=== PATIENT | male | born 1940 | race Hispanic/Latino ===

== ENCOUNTER 2018-03-02 14:14 | Inpatient (IN) | payer MEDICARE ==
[~2018-03-02] VITALS: Ht 152.4 cm; Wt 78.5 kg
--- OUTSIDE RECORDS SUMMARY | 2018-03-02 14:17 | XMS REPORT ---
Author Author [facility] Address Unknown Phone Unavailable Care Team Providers Care Ethylbenzene Converter Helper Name Role Phone LEONARDA URIARTE Unavailable Unavailable Payers Payer Name Policy Type Policy Number Effective Date Expiration Date Problems This patient has no known problems. Allergies, Adverse Reactions, Alerts Allergy Name Allergy Type Status Severity Reaction(s) Onset Date Inactive Date Treating Clinician Comments No Known Allergies DA Active U 2018-01-07 00:00:00 NO KNOWN CONTRAST MEDIA ALLERG DA Active U 2004-05-17 00:00:00 NO KNOWN OTHER ALLERGIES DA Active U 2004-05-17 00:00:00 No Known Drug Allergies DA Active U 2004-05-17 00:00:00 No Known Food Allergies DA Active U 2004-05-17 00:00:00 No Known Drug Intolerances DA Active U 2003-05-26 00:00:00 Medications This patient has no known medications. Results Test Description Test Time Test Comments Text Results Atomic Results Result Comments BASIC METABOLIC PANEL 2017-09-06 03:57:00 SODIUM (BEAKER) (test smob=117) 139 meq/L 136-145 POTASSIUM (BEAKER) (test viaz=653) 4.5 meq/L 3.5-5.1 CHLORIDE (BEAKER) (test amkt=340) 108 meq/L 98-107 CO2 (BEAKER) (test ghys=937) 19 meq/L 22-29 BLOOD UREA NITROGEN (BEAKER) (test sfxs=617) 23 mg/dL 7-21 CREATININE (BEAKER) (test kkir=024) 1.10 mg/dL 0.57-1.25 GLUCOSE RANDOM (BEAKER) (test eanx=740) 176 mg/dL 70-105 CALCIUM (BEAKER) (test bhpa=085) 9.0 mg/dL 8.4-10.2 EGFR (BEAKER) (test uslk=9541) 65 mL/min/1.73 sq m ESTIMATED GFR IS NOT ACCURATE CREATININE CLEARANCE IN PREDICTING GLOMERULAR FILTRATION RATE. ESTIMATED GFR IS NOT APPLICABLE FOR DIALYSIS PATIENTS. CBC (HEMOGRAM ONLY)2017-09-06 03:41:00* Test Item Value Reference Range Comments WHITE BLOOD CELL COUNT (BEAKER) (test myqi=849) 16.8 K/ L 3.5-10.5 RED BLOOD CELL COUNT (BEAKER) (test jhgf=589) 3.92 M/ L 4.63-6.08 HEMOGLOBIN (BEAKER) (test xczr=221) 12.4 GM/DL 13.7-17.5 HEMATOCRIT (BEAKER) (test ifzh=209) 37.7 % 40.1-51.0 MEAN CORPUSCULAR VOLUME (BEAKER) (test bvlh=627) 96.2 fL 79.0-92.2 MEAN CORPUSCULAR HEMOGLOBIN (BEAKER) (test kbre=766) 31.6 pg 25.7-32.2 MEAN CORPUSCULAR HEMOGLOBIN CONC (BEAKER) (test ugkp=181) 32.9 GM/DL 32.3-36.5 RED CELL DISTRIBUTION WIDTH (BEAKER) (test qgyb=450) 14.6 % 11.6-14.4 PLATELET COUNT (BEAKER) (test nwlx=070) 281 K/CU MM 150-450 MEAN PLATELET VOLUME (BEAKER) (test qlsr=735) 11.2 fL 9.4-12.4 NUCLEATED RED BLOOD CELLS (BEAKER) (test wkwl=865) 0 /100 WBC 0-0 [id number] 17:52:00* Test Item Value Reference Range Comments ACTIVATED CLOTTING TIME (BEAKER) (test uddv=754) 164 sec TESTED AT [place] [id number] [facility] [address] [id number] 15:26:00* Test Item Value Reference Range Comments ACTIVATED CLOTTING TIME (BEAKER) (test wyed=746) 235 sec TESTED AT [address] [address] [id number] 15:26:00* Test Item Value Reference Range Comments ACTIVATED CLOTTING TIME (BEAKER) (test hmir=516) 213 sec TESTED AT [address] [address] [id number] 15:25:00* Test Item Value Reference Range Comments ACTIVATED CLOTTING TIME (BEAKER) (test bini=351) 279 sec TESTED AT [address] [address] POCT-GLUCOSE [id number] 08:20:00* Test Item Value Reference Range Comments POC-GLUCOSE METER (AKER) (test yrhf=8765) 118 mg/dL 70-110 TESTED AT [address] [address]
--- OUTSIDE RECORDS SUMMARY | 2018-03-02 14:17 | XMS REPORT | Clinical Summary ---
Author Author [facility]YLEIGH [facility] Address Unknown Phone Unavailable Care Team Providers Care Corn Cooker Name Role Phone PCP Unavailable Allergies No Known Allergies Medications End Date Status Medication Sig Dispensed Refills Start Date Active atorvastatin (LIPITOR) 20 Take 20 mg by 0 MG tablet mouth daily. Active carvedilol (COREG) 25 MG Take 25 mg by 0 tablet mouth 2 (two) times daily with breakfast and dinner. Active amiodarone (PACERONE) 200 Take 100 mg 0 MG tablet by mouth daily . Active ramipril (ALTACE) 2.5 MG Take 10 mg by 0 capsule mouth daily . Active clopidogrel (PLAVIX) 75 Take 75 mg by 0 mg tablet mouth daily. Active gabapentin (NEURONTIN) Take 300 mg 0 300 MG capsule by mouth nightly. Active metformin HCl (METFORMIN Take 500 mg 0 ORAL) by mouth every morning. Active furosemide (LASIX) 20 MG Take 20 mg by 0 tablet mouth every other day. Active amLODIPine (NORVASC) 2.5 Take 2.5 mg 0 MG tablet by mouth daily. Active tamsulosin (FLOMAX) 0.4 Take 0.4 mg 0 mg Cp24 24 hr capsule by mouth nightly. Active ergocalciferol (VITAMIN Take 50,000 0 D2) 50,000 unit capsule Units by mouth once a week. Active alendronate (FOSAMAX) 70 Take 70 mg by 0 MG tablet mouth every 7 days Take in the morning with a full glass of water, on an empty stomach, and do not take anything else by mouth or lie down for the next 30 min. . Active BABY ASPIRIN ORAL Take by mouth 0 daily. 09/05/2017 Discontinued cilostazol (PLETAL) 100 Take 100 mg 0 MG tablet by mouth 2 (two) times daily. 09/05/2017 Discontinued spironolactone Take 25 mg by 0 (ALDACTONE) 25 MG tablet mouth daily. 09/05/2017 Discontinued warfarin (COUMADIN) 2 MG Take 2 mg by 0 tablet mouth daily. Active Problems Problem Noted Date Claudication 09/05/2017 Abnormal stress test 09/05/2017 PAD (peripheral artery disease) 09/05/2017 Pneumonia 10/02/2012 Hypertension CHF (congestive heart failure) Mixed hyperlipidemia CAD (coronary artery disease) PVD (peripheral vascular disease) Diabetes mellitus ICD (implantable cardiac defibrillator) in place Overview: Updated by SNOMED/IMO Encounters Care Team Description Date Type Specialty Sami Gill MD L CATH & CORONARY ANGIOS 09/05/2017 Surgery Sami Gill MD Claudication (HCC) (Primary Dx); Abnormal stress test; Coronary artery disease due to lipid rich plaque 09/05/2017 Hospital Cardiology - Encounter 09/06/2017 after 03/01/2017 Social History Date Tobacco Use Types Packs/Day Years Used Quit: 07/22/2017 Former Smoker 0.25 Smokeless Tobacco: Never Used Tobacco Cessation: Ready to Quit: No; Counseling Given: Yes Alcohol Use Drinks/Week oz/Week Comments No Sex Assigned at Date Recorded Not on file Industry Job Start Date Occupation Not on file Not on file Not on file Travel End Travel History Travel Start No recent travel history available. Last Filed Vital Signs Time Taken Vital Sign Reading 09/06/2017 7:20 AM CDT Blood Pressure 141/63 09/06/2017 7:20 AM CDT Pulse 60 09/06/2017 7:20 AM CDT Temperature 36.7 C (98 F) 09/06/2017 7:20 AM CDT Respiratory Rate 20 09/06/2017 7:20 AM CDT Oxygen Saturation 97% - Inhaled Oxygen - Concentration 09/06/2017 7:20 AM CDT Weight 77.6 kg (171 lb) 09/05/2017 7:00 AM CDT Height 172.7 cm (5' 8") 09/06/2017 7:20 AM CDT Body Mass Index 26 Plan of Treatment Not on file Implants Device Identifier Shelf Expiration Date Model / Serial / Lot Implanted Type Area Manufactur er [id number] 05/19/2018 [id number] / / [id number] Synergy Stents-Cor N/A: Coronary [place] Implanted: Qty: 1 on 09/05/2017 by onary Sami Martinez MD [id number] 04/28/2018 [id number] / / [id number] Promus Premier Stents-Cor N/A: Coronary [place] Implanted: Qty: 1 on 09/05/2017 by Sami Patel MD Procedures Comments Procedure Name Priority Date/Time Associated Diagnosis VASCULAR DIAGRAM -SCAN 12/09/2017 12:00 PM CDT VASCULAR DIAGRAM -SCAN 12/09/2017 12:00 PM CDT CARDIAC CATH REPORT - 09/10/2017 SCAN 10:12 AM CDT RHYTHM STRIP - SCAN 09/09/2017 12:01 PM CDT CBC (HEMOGRAM ONLY) Routine 09/06/2017 3:10 AM CDT BASIC METABOLIC PANEL (7) Routine 09/06/2017 3:10 AM CDT POCT-ACT Routine 09/05/2017 5:46 PM CDT POCT-ACT Routine 09/05/2017 3:08 PM CDT POCT-ACT Routine 09/05/2017 2:39 PM CDT POCT-ACT Routine 09/05/2017 2:02 PM CDT ABD AO & LOWER EXT 09/05/2017 Peripheral vascular ANGIOS/ POSS PPI 1:22 PM CDT disease (HCC) CAD in [place] artery Case Notes 4CASE POP6 Left heart cath possiblelo wer extremity angio with possible ppi L CATH & CORONARY ANGIOS 09/05/2017 Peripheral vascular 1:22 PM CDT disease (HCC) CAD in [place] artery Case Notes 4CASE POP6 Left heart cath possiblelo wer extremity angio with possible ppi POCT-GLUCOSE METER Routine 09/05/2017 8:18 AM CDT after 03/01/2017 Results * VASCULAR DIAGRAM -SCAN (12/09/2017 12:00 PM CDT) Only the most recent of 2 results within the time period is included. Narrative Performed At * CARDIAC CATH REPORT - SCAN (09/10/2017 10:12 AM CDT) Narrative Performed At * RHYTHM STRIP - SCAN (09/09/2017 12:01 PM CDT) Narrative Performed At * CBC (Hemogram only) (09/06/2017 3:10 AM CDT) WBC 16.8 (H) 3.5 - 10.5 K/L [facility] RBC 3.92 (L) 4.63 - 6.08 M/L [facility] Hemoglobin 12.4 (L) 13.7 - 17.5 GM/DL [facility] Hematocrit 37.7 (L) 40.1 - 51.0 % [facility] MCV 96.2 (H) 79.0 - 92.2 fL [facility] MCH 31.6 25.7 - 32.2 pg [facility] MCHC 32.9 32.3 - 36.5 GM/DL [facility] RDW 14.6 (H) 11.6 - 14.4 % [facility] Platelets 281 150 - 450 K/CU MM [facility] MPV 11.2 9.4 - 12.4 fL [facility] nRBC 0 0 - 0 /100 WBC [facility] Specimen Blood Performing Organization Address City/State/Zipcode Phone Number [facility] [address] [place] [address] MEDICAL CENTER * Basic metabolic panel (09/06/2017 3:10 AM CDT) Sodium 139 136 - 145 meq/L [facility] Potassium 4.5 3.5 - 5.1 meq/L [facility] Chloride 108 (H) 98 - 107 meq/L [facility] CO2 19 (L) 22 - 29 meq/L [facility] BUN 23 (H) 7 - 21 mg/dL [facility] Creatinine 1.10 0.57 - 1.25 mg/dL [facility] Glucose 176 (H) 70 - 105 mg/dL [facility] Calcium 9.0 8.4 - 10.2 mg/dL [facility] EGFR 65Comment: ESTIMATED GFR IS mL/min/1.[address] [facility] NOT ACCURATE CREATININE [facility] CLEARANCE IN PREDICTING GLOMERULAR FILTRATION RATE. ESTIMATED GFR IS NOT APPLICABLE FOR DIALYSIS PATIENTS. Specimen Blood Performing Organization Address City/[facility] [place] [address] [phone] [place] [address] * POC ACTIVATED CLOTTING TIME (09/05/2017 5:46 PM CDT) Only the most recent of 4 results within the time period is included. Activated Clotting Time 164Comment: TESTED AT [facility] sec [address] Specimen Blood Performing Organization Address City/[facility] Cent[facility] Phone Number [address] [address] [phone] [place] [address] * POC-Glucose meter (09/05/2017 8:18 AM CDT) POC-Glucose Meter 118 (H)Comment: TESTED AT 70 - 110 mg/dL [address] [address] Specimen Blood Performing Organization Address City/[facility] Cent[facility]osd Phone Number [address] [address] [phone] [address] after 03/01/2017 Insurance Payer Benefit Subscriber ID Type Phone Address Plan / Group [facility] MEDICARE ADV Advance Directives For more information, please contact: [address] [address] Date Inactivated Comments Code Status Date Activated 09/06/2017 12:37 PM Full Code 09/05/2017 7:55 AM This code status was determined by: Patient 10/05/2012 4:53 PM All possible means of support, including: cardiac massage, mechanical ventilation, and defibrillation will be used to support life. Code ONE 10/03/2012 1:11 AM
--- OUTSIDE RECORDS SUMMARY | 2018-03-02 15:12 | XMS REPORT | Clinical Summary ---
Author Author KYLEIGH [facility] Address Unknown Phone Unavailable Care Team Providers Care Wire Products Inspector Name Role Phone PCP Unavailable Allergies No [...] / Lot Implanted Type Area Manufactur er [id number] 05/19/2018 [id number] / / [id number] Synergy Stents-Cor N/A: Coronary [place] Implanted: Qty: 1 on 09/05/2017 by onary Sami Martinez MD [id number] 04/28/2018 [id number] / / [id number] Promus Premier Stents-Cor N/A: Coronary [place] Implanted: [...] 1:22 PM CDT disease (HCC) CAD in [place] artery Case Notes 4CASE POP6 Left heart cath possiblelo wer extremity angio with possible ppi L CATH & CORONARY ANGIOS 09/05/2017 Peripheral vascular 1:22 PM CDT disease (HCC) CAD in [place] artery Case Notes 4CASE POP6 Left heart [...] WBC 16.8 (H) 3.5 - 10.5 K/L [facility] RBC 3.92 (L) 4.63 - 6.08 M/L [facility] Hemoglobin 12.4 (L) 13.7 - 17.5 GM/DL [facility] Hematocrit 37.7 (L) 40.1 - 51.0 % [facility] MCV 96.2 (H) 79.0 - 92.2 fL [facility] MCH 31.6 25.7 - 32.2 pg [facility] MCHC 32.9 32.3 - 36.5 GM/DL [facility] RDW 14.6 (H) 11.6 - 14.4 % [facility] Platelets 281 150 - 450 K/CU MM [facility] MPV 11.2 9.4 - 12.4 fL [facility] nRBC 0 0 - 0 /100 WBC [facility] Specimen Blood Performing Organization Address City/State/Zipcode Phone Number [facility] [address] [place] [address] MEDICAL CENTER * Basic metabolic panel (09/06/2017 3:10 AM CDT) Sodium 139 136 - 145 meq/L [facility] Potassium 4.5 3.5 - 5.1 meq/L [facility] Chloride 108 (H) 98 - 107 meq/L [facility] CO2 19 (L) 22 - 29 meq/L [facility] BUN 23 (H) 7 - 21 mg/dL [facility] Creatinine 1.10 0.57 - 1.25 mg/dL [facility] Glucose 176 (H) 70 - 105 mg/dL [facility] Calcium 9.0 8.4 - 10.2 mg/dL [facility] EGFR 65Comment: ESTIMATED GFR IS mL/min/1.[address] [facility] NOT ACCURATE CREATININE [facility] CLEARANCE IN PREDICTING GLOMERULAR FILTRATION RATE. ESTIMATED GFR IS NOT APPLICABLE FOR DIALYSIS PATIENTS. Specimen Blood Performing Organization Address City/[facility] [place] [address] [phone] [place] [address] * POC ACTIVATED CLOTTING TIME (09/05/2017 5:46 PM CDT) Only the most recent of 4 results within the time period is included. Activated Clotting Time 164Comment: TESTED AT [facility] sec [address] Specimen Blood Performing Organization Address City/[facility] Unit[facility] Phone Number [address] [address] [phone] [place] [address] * POC-Glucose meter (09/05/2017 8:18 AM CDT) POC-Glucose Meter 118 (H)Comment: TESTED AT 70 - 110 mg/dL [address] [address] Specimen Blood Performing Organization Address City/[facility] Unitcoal Phone Number [address] [address] [phone] [address] after 03/01/2017 Insurance Payer Benefit Subscriber ID Type Phone Address Plan / Group [facility] xxxxxxxxxxx MEDICARE ADV Advance Directives For more information, please contact: [address] [address] Date Inactivated Comments Code Status Date Activated 09/06/2017 12:37 PM Full Code 09/05/2017 7:55 AM This code status was determined by: Patient 10/05/2012 4:53 PM All possible means of support, including: cardiac massage, mechanical ventilation, and defibrillation will be used to support life. Code ONE 10/03/2012 1:11 AM
[2018-03-02] MEDS ORDERED: NITROGLYCERIN 2% OINT 1 GM PKT TOP ONE (15:15)
[2018-03-02] MEDS ORDERED: FUROSEMIDE INJ 10 MG/ML 4 ML VIAL IV NR (15:15)
--- NOTE | 2018-03-02 15:31 | Diagnostic Imaging Report ---
EXAMINATION: PA and lateral views of the chest. COMPARISON: None CLINICAL HISTORY: shortness of breath DISCUSSION: Lines/tubes: Sternotomy wires. 3-lead cardiac device/ICD. Lungs: Pulmonary edema. Pleura: Small effusions. Heart and mediastinum: Heart is enlarged. Bones and soft tissues: No acute bony abnormalities. IMPRESSION: Cardiomegaly with pulmonary edema Signed by: Dr. Teto Padilla M.D. on 03/02/2018 3:28 PM
[2018-03-02 16:30] VITALS: BP 136/88
[2018-03-02 17:30] VITALS: BP 136/88
[2018-03-02 19:50] LABS: CREATINE KINASE MB 4.6 ng/mL (0-5.0)
[2018-03-02 20:00] VITALS: BP 136/65
[2018-03-03] VITALS (8 sets, daily range): BP systolic 122–174; BP diastolic 55–78
[2018-03-03 05:01] LABS: BASOPHILS # (AUTO) 0.1 (0.0-0.1); BASOPHILS % 0.9 % (0.0-1.0); EOSINOPHILS # (AUTO) 0.1 (0.0-0.4); EOSINOPHILS % 0.5 % (0.0-6.0); HEMOGLOBIN 9.2 g/dL (14.0-18.0); LYMPHOCYTES # (AUTO) 1.4 (1.0-3.2); MEAN CORPUSCULAR HGB CONC 29.7 g/dL (31-35); MONOCYTES # (AUTO) 1.4 (0.2-0.8); MONOCYTES % 10.5 % (4.4-11.3); NEUTROPHILS # (AUTO) 9.9 (2.1-6.9); NEUTROPHILS % 76.6 % (38.7-80.0); PLATELET COUNT 411 x10e3/uL (140-360); RED BLOOD COUNT 4.19 x10e6/uL (4.3-5.7); RED CELL DISTRIBUTION WIDTH 17.6 % (11.7-14.4)
[2018-03-03 05:19] LABS: ALBUMIN 3.7 g/dL (3.5-5.0); ANION GAP 15.8 mmol/L (8-16); CALCIUM 9.3 mg/dL (8.4-10.2); CREATININE, SERUM 1.23 mg/dL (0.72-1.25); POTASSIUM 3.8 mmol/L (3.5-5.1)
[2018-03-03] MEDS ORDERED: ACETAMINOPHEN 325 MG TAB PO PRN (09:30)
[2018-03-03] MEDS ORDERED: ONDANSETRON HCL INJ 2 MG/ML VIAL IV PRN (09:30)
[2018-03-03] MEDS ORDERED: LOSARTAN POTASS25 MG PO (09:40)
[2018-03-03] MEDS ORDERED: METFORMIN HCL500 MG PO (09:40)
[2018-03-03] MEDS ORDERED: ELIQUIS PO (09:40)
[2018-03-03] MEDS ORDERED: FLOMAX0.4 MG PO (09:40)
[2018-03-03] MEDS ORDERED: ASPIRIN 325 MG TAB PO SCH (10:00)
--- NOTE | 2018-03-03 10:09 | Diagnostic Imaging Report ---
PROCEDURE: A single AP view of the chest. COMPARISON: 1209 2017. INDICATIONS: CHF FINDINGS: Stable enlargement of the cardiac silhouette with postsurgical changes of the mediastinum. Prominence of the pulmonary interstitium, and small bilateral pleural effusions left greater than right are also unchanged. No acute osseous abnormality. IMPRESSION: Stable cardiomegaly with interstitial pulmonary edema and small bilateral pleural effusions. Dictated by: Sami Hammonds M.D. on 03/03/2018 at 10:19 Electronically approved by: Sami Hammonds M.D. on 03/03/2018 at 10:19
[2018-03-03] MEDS: CARVEDILOL 3.125 MG TAB PO SCH ×2 (11:10→21:57)
[2018-03-03] MEDS: FUROSEMIDE INJ 10 MG/ML 4 ML VIAL IV SCH ×2 (11:10→21:57)
[2018-03-03] MEDS: PANTOPRAZOLE SOD 40 MG TABEC PO SCH (11:10)
[2018-03-03] MEDS: OSELTAMIVIR PHOSPHATE 75 MG CAP PO SCH ×2 (11:10→21:57)
[2018-03-03] MEDS ORDERED: CARVEDILOL 3.125 MG TAB PO ONE (13:15)
[2018-03-03] MEDS: ASPIRIN 81 MG CHEW TAB PO SCH (13:16)
[2018-03-03] MEDS: APIXABAN 5 MG TABLET PO SCH (16:58)
[2018-03-03] MEDS: CARVEDILOL 12.5 MG TAB PO SCH (21:00)
[2018-03-03] MEDS: TAMSULOSIN HCL 0.4 MG CAP PO SCH (21:57)
[2018-03-03] MEDS: HEPARIN SOD (PORCINE) 5,000 UNIT/ML VIAL SC SCH (21:58)
[2018-03-04 04:47] LABS: BASOPHILS # (AUTO) 0.1 (0.0-0.1); BASOPHILS % 0.8 % (0.0-1.0); EOSINOPHILS # (AUTO) 0.2 (0.0-0.4); EOSINOPHILS % 1.7 % (0.0-6.0); HEMATOCRIT 27.8 % (38.2-49.6); HEMOGLOBIN 8.3 g/dL (14.0-18.0); LYMPHOCYTES # (AUTO) 1.5 (1.0-3.2); LYMPHOCYTES % 13.7 % (18.0-39.1); MEAN CORPUSCULAR HGB CONC 29.9 g/dL (31-35); MEAN CORPUSCULAR VOLUME 73.7 fL (81-99); MONOCYTES # (AUTO) 1.4 (0.2-0.8); MONOCYTES % 12.1 % (4.4-11.3); NEUTROPHILS # (AUTO) 7.9 (2.1-6.9); NEUTROPHILS % 71.3 % (38.7-80.0); PLATELET COUNT 354 x10e3/uL (140-360); RED BLOOD COUNT 3.77 x10e6/uL (4.3-5.7); RED CELL DISTRIBUTION WIDTH 17.6 % (11.7-14.4)
[2018-03-04 04:50] VITALS: BP 138/59
[2018-03-04 05:11] LABS: ANION GAP 16.5 mmol/L (8-16); CALCIUM 9.1 mg/dL (8.4-10.2); CREATININE, SERUM 1.24 mg/dL (0.72-1.25); POTASSIUM 3.5 mmol/L (3.5-5.1)
[2018-03-04 05:13] LABS: ALBUMIN 3.4 g/dL (3.5-5.0); BILIRUBIN,DIRECT 0.2 mg/dL (0.0-0.5)
[2018-03-04 05:31] LABS: % IRON SATURATION 1 % (15-50); CHOL/HDL RATIO 3.9 (3.9-4.7); IRON 7 ug/dL (65-175); TOTAL IRON BINDING CAPACITY 487 ug/dL (261-478); TRANSFERRIN 348 mg/dL (174-364)
--- NOTE | 2018-03-04 06:10 | Diagnostic Imaging Report ---
EXAMINATION: CHEST SINGLE (PORTABLE) INDICATION: CHF COMPARISON: 03/03/2018 and 03/02/2018 FINDINGS: AP view TUBES and LINES: Sternotomy wires. 3-lead cardiac device/ICD. LUNGS: Lungs are well inflated. Stable edema. Increased right infrahilar opacity likely representing atelectasis. PLEURA: Small effusions, stable. No pneumothorax. HEART AND MEDIASTINUM: Stable cardiomegaly. CABG clips. BONES AND SOFT TISSUES: No acute osseous lesion. Soft tissues are unremarkable. UPPER ABDOMEN: No free air under the diaphragm. IMPRESSION: Stable cardiomegaly with pulmonary edema. Signed by: DR. Eulalio Haq MD on 03/04/2018 6:07 AM
[2018-03-04 08:00] VITALS: BP 124/58
[2018-03-04 08:31] VITALS: BP 124/58
[2018-03-04] MEDS: CARVEDILOL 12.5 MG TAB PO SCH ×2 (09:00→21:12)
[2018-03-04] MEDS: OSELTAMIVIR PHOSPHATE 75 MG CAP PO SCH ×2 (09:13→21:12)
[2018-03-04] MEDS: PANTOPRAZOLE SOD 40 MG TABEC PO SCH (09:13)
[2018-03-04] MEDS: FUROSEMIDE INJ 10 MG/ML 4 ML VIAL IV SCH ×2 (09:13→21:12)
[2018-03-04] MEDS: ASPIRIN 81 MG CHEW TAB PO SCH (09:13)
[2018-03-04] MEDS: APIXABAN 5 MG TABLET PO SCH ×2 (09:13→17:07)
[2018-03-04] MEDS: HEPARIN SOD (PORCINE) 5,000 UNIT/ML VIAL SC SCH (09:13)
[2018-03-04] MEDS: CARVEDILOL 3.125 MG TAB PO SCH (09:13)
[2018-03-04 11:55] VITALS: BP 132/60
[2018-03-04] MEDS ORDERED: SODIUM CHLORIDE 0.9% 250ML 250 ML ONE (12:22)
[2018-03-04] MEDS: IRON SUCROSE 100 MG in SODIUM CHLORIDE 0.9% 100 ML 100 ML IV SCH (12:47)
[2018-03-04] MEDS: SPIRONOLACTONE 25 MG TAB PO SCH (12:47)
[2018-03-04] MEDS ORDERED: PNEUMOCOCCAL VACCINE POLYVALENT 23 MCG/0.5 ML VIAL IM NR (15:00)
[2018-03-04 15:57] VITALS: BP 136/79
[2018-03-04 20:00] VITALS: BP 148/67
[2018-03-04] MEDS: TAMSULOSIN HCL 0.4 MG CAP PO SCH (21:12)
[2018-03-05] VITALS (7 sets, daily range): BP systolic 107–134; BP diastolic 46–64
[2018-03-05 05:01] LABS: BASOPHILS # (AUTO) 0.1 (0.0-0.1); BASOPHILS % 0.6 % (0.0-1.0); EOSINOPHILS # (AUTO) 0.3 (0.0-0.4); EOSINOPHILS % 2.1 % (0.0-6.0); HEMOGLOBIN 8.1 g/dL (14.0-18.0); LYMPHOCYTES # (AUTO) 1.4 (1.0-3.2); LYMPHOCYTES % 10.4 % (18.0-39.1); MEAN CORPUSCULAR HEMOGLOBIN 22.3 pg (28-32); MEAN CORPUSCULAR VOLUME 74.2 fL (81-99); MONOCYTES # (AUTO) 1.6 (0.2-0.8); MONOCYTES % 11.5 % (4.4-11.3); NEUTROPHILS # (AUTO) 10.3 (2.1-6.9); NEUTROPHILS % 74.8 % (38.7-80.0); PLATELET COUNT 329 x10e3/uL (140-360); RED BLOOD COUNT 3.64 x10e6/uL (4.3-5.7); RED CELL DISTRIBUTION WIDTH 17.6 % (11.7-14.4)
[2018-03-05 05:20] LABS: ANION GAP 14.5 mmol/L (8-16); BLOOD UREA NITROGEN 27 mg/dL (7-26); BUN/CREATININE RATIO 24 (6-25); CALCIUM 8.9 mg/dL (8.4-10.2); CARBON DIOXIDE 28 mmol/L (22-29); CHLORIDE 94 mmol/L (98-107); CREATININE, SERUM 1.14 mg/dL (0.72-1.25); EST GLOMERULAR FILTRATION RATE > 60 ML/MIN (60-); GLUCOSE 124 mg/dL (74-118); MAGNESIUM 1.9 MG/DL (1.3-2.1); POTASSIUM 3.5 mmol/L (3.5-5.1); SODIUM 133 mmol/L (136-145)
--- NOTE | 2018-03-05 06:34 | Diagnostic Imaging Report ---
EXAMINATION: CHEST SINGLE (PORTABLE) INDICATION: CHF COMPARISON: 03/04/2018 FINDINGS: AP view TUBES and LINES: Sternotomy wires. 3-lead cardiac device/ICD. LUNGS: Lungs are well inflated. Stable edema. Stable right infrahilar opacity likely representing atelectasis. PLEURA: Small effusions, stable. No pneumothorax. HEART AND MEDIASTINUM: Stable cardiomegaly. CABG clips. BONES AND SOFT TISSUES: No acute osseous lesion. Soft tissues are unremarkable. UPPER ABDOMEN: No free air under the diaphragm. IMPRESSION: Stable cardiomegaly with pulmonary edema. Signed by: DR. Eulalio Haq MD on 03/05/2018 6:30 AM
[2018-03-05 07:44] LABS: EOSINOPHILS % (MANUAL) 3 % (0-7); LYMPHOCYTES % (MANUAL) 14 % (19-48); METAMYELOCYTES % (MANUAL) 1 % (0-0); MONOCYTES % (MANUAL) 7 % (3.4-9.0); NEUTROPHILS % (MANUAL) 75 % (40-74); NUCLEATED RED BLOOD CELLS 1
[2018-03-05 07:45] LABS: ANISOCYTOSIS MODERATE; HYPOCHROMASIA MODERATE; PLATELET ESTIMATE ADEQUATE; PLATELET MORPHOLOGY COMMENT NORMAL; POIKILOCYTOSIS SLIGHT; RBC MORPHOLOGY COMMENT ABNORMAL
[2018-03-05] MEDS: CARVEDILOL 12.5 MG TAB PO SCH ×2 (09:04→20:49)
[2018-03-05] MEDS: APIXABAN 5 MG TABLET PO SCH ×2 (09:04→16:07)
[2018-03-05] MEDS: SPIRONOLACTONE 25 MG TAB PO SCH (09:04)
[2018-03-05] MEDS: ASPIRIN 81 MG CHEW TAB PO SCH (09:04)
[2018-03-05] MEDS: OSELTAMIVIR PHOSPHATE 75 MG CAP PO SCH ×2 (09:04→20:49)
[2018-03-05] MEDS: FUROSEMIDE INJ 10 MG/ML 4 ML VIAL IV SCH ×2 (09:04→20:49)
[2018-03-05] MEDS: PANTOPRAZOLE SOD 40 MG TABEC PO SCH (09:04)
[2018-03-05] MEDS: IRON SUCROSE 100 MG in SODIUM CHLORIDE 0.9% 100 ML 100 ML IV SCH (12:00)
[2018-03-05] MEDS ORDERED: POTASSIUM CHLORIDE 20 MEQ TAB CR PO ONE (15:00)
[2018-03-05] MEDS ORDERED: LACTULOSE SYRUP 20 GM/30 ML UDC PO ONE (15:00)
[2018-03-05] MEDS: TAMSULOSIN HCL 0.4 MG CAP PO SCH (20:49)
[2018-03-06] VITALS (9 sets, daily range): BP systolic 109–179; BP diastolic 58–86
[2018-03-06 04:41] LABS: BASOPHILS # (AUTO) 0.1 (0.0-0.1); BASOPHILS % 0.6 % (0.0-1.0); EOSINOPHILS # (AUTO) 0.3 (0.0-0.4); EOSINOPHILS % 2.5 % (0.0-6.0); HEMATOCRIT 27.2 % (38.2-49.6); HEMOGLOBIN 8.1 g/dL (14.0-18.0); LYMPHOCYTES # (AUTO) 1.8 (1.0-3.2); LYMPHOCYTES % 14.5 % (18.0-39.1); MEAN CORPUSCULAR HEMOGLOBIN 22.5 pg (28-32); MEAN CORPUSCULAR HGB CONC 29.8 g/dL (31-35); MEAN CORPUSCULAR VOLUME 75.6 fL (81-99); MONOCYTES # (AUTO) 1.4 (0.2-0.8); MONOCYTES % 11.4 % (4.4-11.3); NEUTROPHILS # (AUTO) 8.9 (2.1-6.9); NEUTROPHILS % 70.3 % (38.7-80.0); PLATELET COUNT 311 x10e3/uL (140-360); RED CELL DISTRIBUTION WIDTH 18.1 % (11.7-14.4)
[2018-03-06 05:04] LABS: ANION GAP 12.8 mmol/L (8-16); CREATININE, SERUM 1.26 mg/dL (0.72-1.25); MAGNESIUM 2.2 MG/DL (1.3-2.1); POTASSIUM 3.8 mmol/L (3.5-5.1)
--- NOTE | 2018-03-06 05:38 | Diagnostic Imaging Report ---
EXAMINATION: CHEST SINGLE (PORTABLE) INDICATION: CHF. COMPARISON: 03/05/2018 FINDINGS: AP view TUBES and LINES: Sternotomy wires. 3-lead cardiac device/ICD. LUNGS: Lungs are well inflated. Mildly decreased edema. PLEURA: Small effusions, stable. No pneumothorax. HEART AND MEDIASTINUM: Stable cardiomegaly. CABG clips. BONES AND SOFT TISSUES: No acute osseous lesion. Soft tissues are unremarkable. UPPER ABDOMEN: No free air under the diaphragm. IMPRESSION: Mildly decreased pulmonary edema. Signed by: DR. Eulalio Haq MD on 03/06/2018 5:33 AM
[2018-03-06] MEDS: PANTOPRAZOLE SOD 40 MG TABEC PO SCH (08:00)
[2018-03-06] MEDS: CARVEDILOL 12.5 MG TAB PO SCH ×2 (08:00→20:24)
[2018-03-06] MEDS: FUROSEMIDE INJ 10 MG/ML 4 ML VIAL IV SCH ×2 (08:00→20:24)
[2018-03-06] MEDS: OSELTAMIVIR PHOSPHATE 75 MG CAP PO SCH ×2 (08:00→20:24)
[2018-03-06] MEDS: SPIRONOLACTONE 25 MG TAB PO SCH (08:00)
[2018-03-06] MEDS: APIXABAN 5 MG TABLET PO SCH ×2 (08:00→18:08)
[2018-03-06] MEDS: ASPIRIN 81 MG CHEW TAB PO SCH (08:00)
[2018-03-06] MEDS: IRON SUCROSE 100 MG in SODIUM CHLORIDE 0.9% 100 ML 100 ML IV SCH (11:30)
[2018-03-06] MEDS: TAMSULOSIN HCL 0.4 MG CAP PO SCH (20:24)
[2018-03-07] VITALS (8 sets, daily range): BP systolic 120–132; BP diastolic 57–87
[2018-03-07] MEDS ORDERED: PRAVASTATIN SOD10 MG PO (06:28)
[2018-03-07] MEDS ORDERED: LASIX40 MG PO (06:28)
[2018-03-07] MEDS ORDERED: COREG12.5 MG PO (06:28)
--- NOTE | 2018-03-07 07:35 | Progress Note ---
DATE: March 06, 2018 INTERNAL MEDICINE PROGRESS NOTE COVERAGE FOR: Dr. Teto Ivey. SUBJECTIVE: Mr. Og was seen and examined at the bedside. He is walking independently. He is eating well. Chest x-ray shows improved fluid overload. Two liters per minute by nasal cannula, 99% oxygen saturation. REVIEW OF SYSTEMS: No headaches, no rash. OBJECTIVE VITAL SIGNS: Afebrile. Vital signs noted per electronic record. GENERAL: In no acute distress, alert and calm, slightly weak. HEENT: Normocephalic, atraumatic. NECK: Supple. Throat midline. LUNGS: Bilateral air entry is decreased, rare rhonchi. CARDIOVASCULAR: S1 and S2. No murmurs, rubs, or gallops. ABDOMEN: Soft and nontender. EXTREMITIES: No clubbing or cyanosis, still 1 to 2+ edema. INTEGUMENT: No rash or purpura. LABORATORY DATA: BUN 27 and creatinine 1.3. White count 13 and hematocrit 27. IMAGING STUDIES: Chest x-rays shows improved fluid overload. IMPRESSION 1. Influenza A with exacerbation. 2. Fluid overload, chronic systolic congestive heart failure with acute flare. 3. Hypokalemia. 4. Chronic smoker. 5. Former alcohol. 6. Poor adherence to medications. 7. Chronic obstructive pulmonary disease, chronic hypoxemia. PLAN: Continue Tamiflu. Mobilize the patient further. Continue diuretics. The patient will be arranged for home health given poor adherence. We will see if he qualifies for oxygen. He has 85% oxygen saturation on room air and . Job#: [id number] NAREN
[2018-03-07] MEDS: ASPIRIN 81 MG CHEW TAB PO SCH (09:00)
[2018-03-07] MEDS: PANTOPRAZOLE SOD 40 MG TABEC PO SCH ×2 (09:00→20:36)
[2018-03-07] MEDS: OSELTAMIVIR PHOSPHATE 75 MG CAP PO SCH ×2 (09:00→20:36)
[2018-03-07] MEDS: APIXABAN 5 MG TABLET PO SCH ×2 (09:00→16:48)
[2018-03-07] MEDS: FUROSEMIDE INJ 10 MG/ML 4 ML VIAL IV SCH ×2 (09:00→20:36)
[2018-03-07] MEDS: SPIRONOLACTONE 25 MG TAB PO SCH (09:01)
[2018-03-07] MEDS: CARVEDILOL 12.5 MG TAB PO SCH ×2 (09:01→20:36)
--- NOTE | 2018-03-07 10:09 | Diagnostic Imaging Report ---
EXAMINATION: CHEST SINGLE (PORTABLE) INDICATION: CHF. COMPARISON: Chest x-ray 03/06/2018. 03/05/2018. FINDINGS: AP view TUBES and LINES: Left-sided ICD with 3 intact wires. LUNGS: Lungs are well inflated. There are bibasilar atelectasis. There is mild prominence of the central pulmonary vasculature, consistent with pulmonary venous congestion. PLEURA: No pleural effusion or pneumothorax. HEART AND MEDIASTINUM: Cardiac size is moderately enlarged. There are atherosclerotic calcifications within the aorta. BONES AND SOFT TISSUES: No acute osseous lesion. Soft tissues are unremarkable. UPPER ABDOMEN: No free air under the diaphragm. IMPRESSION: Moderate cardiomegaly with central pulmonary venous congestion. Signed by: Dr. Yunier Al M.D. on 03/07/2018 10:05 AM
[2018-03-07 10:33] LABS: CALCIUM 9.1 mg/dL (8.4-10.2); CREATININE, SERUM 1.17 mg/dL (0.72-1.25); MAGNESIUM 2.1 MG/DL (1.3-2.1)
[2018-03-07] MEDS: TAMSULOSIN HCL 0.4 MG CAP PO SCH (20:36)
[2018-03-08] VITALS (8 sets, daily range): BP systolic 115–148; BP diastolic 50–68
--- NOTE | 2018-03-08 04:29 | Progress Note ---
DATE: March 07, 2018 INTERNAL MEDICINE PROGRESS NOTE COVERAGE FOR: Dr. Teto Ivey. SUBJECTIVE: Mr. Og was seen and examined at the bedside. He has 85% saturation. He was on room air with FiO2. He was at rest during this. Echo was reported with EF less than 20%. He was unable to acquire oxygen yesterday. REVIEW OF SYSTEMS: No headaches, no bleeding. OBJECTIVE VITAL SIGNS: Afebrile. Vital signs noted per electronic record. GENERAL: In no acute distress, alert and calm, in bed, looks little bit weak. HEENT: Normocephalic, atraumatic. NECK: Supple. Throat midline. LUNGS: Bilateral air entry with decreased breath sounds. CARDIOVASCULAR: No murmurs. No rubs. ABDOMEN: Soft, nontender, and obese. EXTREMITIES: No clubbing. No cyanosis. There is 1 to 2+ edema. INTEGUMENT: No rash or purpura. LABORATORY DATA: No new updates today. IMPRESSION 1. Influenza A, acute. 2. Fluid overload, [id number] systolic congestive heart failure. 3. Chronic smoker, possible chronic obstructive pulmonary disease with exacerbation. 4. Chronic hypoxemia. 5. Former alcohol dependency. 6. Poor adherence to medications. PLAN: We are going to have to wait out for the home oxygen to be acquired. Patient is very fragile at baseline. Continue diuretics. Recheck blood work in the morning and ensure potassium is adequate. Continue to mobilize him as possible. Job#: [id number] NATHAN
[2018-03-08 04:44] LABS: BASOPHILS # (AUTO) 0.1 (0.0-0.1); BASOPHILS % 0.8 % (0.0-1.0); EOSINOPHILS # (AUTO) 0.4 (0.0-0.4); EOSINOPHILS % 3.5 % (0.0-6.0); HEMATOCRIT 27.1 % (38.2-49.6); LYMPHOCYTES # (AUTO) 2.1 (1.0-3.2); MEAN CORPUSCULAR HEMOGLOBIN 22.4 pg (28-32); MEAN CORPUSCULAR HGB CONC 29.5 g/dL (31-35); MEAN CORPUSCULAR VOLUME 75.9 fL (81-99); MONOCYTES # (AUTO) 1.2 (0.2-0.8); NEUTROPHILS # (AUTO) 8.3 (2.1-6.9); NEUTROPHILS % 68.1 % (38.7-80.0); PLATELET COUNT 286 x10e3/uL (140-360); RED BLOOD COUNT 3.57 x10e6/uL (4.3-5.7); RED CELL DISTRIBUTION WIDTH 19.1 % (11.7-14.4)
[2018-03-08 05:00] LABS: ANION GAP 13.3 mmol/L (8-16); BLOOD UREA NITROGEN 29 mg/dL (7-26); BUN/CREATININE RATIO 28 (6-25); CALCIUM 9.4 mg/dL (8.4-10.2); CARBON DIOXIDE 35 mmol/L (22-29); CHLORIDE 97 mmol/L (98-107); CREATININE, SERUM 1.02 mg/dL (0.72-1.25); EST GLOMERULAR FILTRATION RATE > 60 ML/MIN (60-); GLUCOSE 122 mg/dL (74-118); MAGNESIUM 2.1 MG/DL (1.3-2.1); POTASSIUM 4.3 mmol/L (3.5-5.1); SODIUM 141 mmol/L (136-145)
--- NOTE | 2018-03-08 06:48 | Diagnostic Imaging Report ---
EXAMINATION: CHEST SINGLE (PORTABLE) INDICATION: chf COMPARISON: 03/07/2018 FINDINGS: AP view TUBES and LINES: Left chest wall ICD. LUNGS: Lungs are moderately inflated. Stable central pulmonary venous congestion. PLEURA: No pleural effusion or pneumothorax. HEART AND MEDIASTINUM: Stable moderate enlargement of the cardiac silhouette. Aortic calcifications. BONES AND SOFT TISSUES: No acute osseous lesion. Median sternotomy wires. Soft tissues are unremarkable. UPPER ABDOMEN: No free air under the diaphragm. IMPRESSION: Stable cardiomegaly and central pulmonary venous congestion. Signed by: DR. Eulalio Haq MD on 03/08/2018 6:45 AM
[2018-03-08] MEDS: FUROSEMIDE INJ 10 MG/ML 4 ML VIAL IV SCH ×2 (09:27→20:03)
[2018-03-08] MEDS: LISINOPRIL 10 MG TAB PO SCH (09:27)
[2018-03-08] MEDS: CARVEDILOL 12.5 MG TAB PO SCH ×2 (09:27→20:03)
[2018-03-08] MEDS: SPIRONOLACTONE 25 MG TAB PO SCH (09:27)
[2018-03-08] MEDS: ASPIRIN 81 MG CHEW TAB PO SCH (09:27)
[2018-03-08] MEDS: OSELTAMIVIR PHOSPHATE 75 MG CAP PO SCH (09:27)
[2018-03-08] MEDS: APIXABAN 5 MG TABLET PO SCH ×2 (09:27→17:43)
--- NOTE | 2018-03-08 16:52 | Progress Note ---
DATE: March 08, 2018 INTERNAL MEDICINE PROGRESS NOTE COVERAGE FOR: Dr. Ivey. SUBJECTIVE: Mr. Og was seen and examined at bedside. He is on 3 liters per minute by nasal cannula. He is eating well. He is having bowel movements. He was not able to get weaned further off the oxygen yesterday. He is able to move around more spontaneously now. REVIEW OF SYSTEMS: No headaches. No double vision. OBJECTIVE VITAL SIGNS: Afebrile. Vital signs noted per electronic record. GENERAL: In no acute distress, alert and calm. HEENT: Normocephalic, atraumatic. NECK: Supple. Throat midline. LUNGS: Bilateral air entry with decreased breath sounds. Small rhonchi. CARDIOVASCULAR: S1, S2. No murmurs, rubs, or gallops. ABDOMEN: Soft, obese. EXTREMITIES: No clubbing. No cyanosis. No edema. INTEGUMENT: No rash or purpura. LABORATORY DATA: Potassium 4.3, BUN 29, creatinine 1.0, white count 12, hematocrit 27. Chest x-ray continues to show stable mild pulmonary venous congestion. IMPRESSION 1. Influenza with exacerbation. 2. Pneumonia. 3. Fluid overload. 4. Leqch-ow-dcadlvr systolic heart failure with exacerbation. 5. Active smoker, suspect underlying chronic obstructive pulmonary disease. 6. Hypoxemia. 7. Former alcohol dependency. PLAN: Continued smoking cessation is highly recommended. I talked to him about this. Continue oxygen. As he is very fragile, we wish to allow him to go home only when oxygen has arrived. We are arranging home oxygen with his insurance company. Continue to promote activity and mobilization. Continue cardiac medications. Job#: [id number] LPA
[2018-03-08] MEDS: TAMSULOSIN HCL 0.4 MG CAP PO SCH (20:03)
[2018-03-09] VITALS: BP 112/53
[2018-03-09 04:00] VITALS: BP 130/60
[2018-03-09] MEDS: PANTOPRAZOLE SOD 40 MG TABEC PO SCH (07:30)
[2018-03-09 09:00] VITALS: BP 115/57
[2018-03-09] MEDS: ASPIRIN 81 MG CHEW TAB PO SCH (09:58)
[2018-03-09] MEDS: APIXABAN 5 MG TABLET PO SCH (09:58)
[2018-03-09] MEDS: FUROSEMIDE INJ 10 MG/ML 4 ML VIAL IV SCH (09:58)
[2018-03-09] MEDS: SPIRONOLACTONE 25 MG TAB PO SCH (09:58)
[2018-03-09] MEDS: CARVEDILOL 12.5 MG TAB PO SCH (09:58)
[2018-03-09] MEDS: LISINOPRIL 10 MG TAB PO SCH (09:58)
[2018-03-09 11:05] VITALS: BP 115/57
--- NOTE | 2018-03-09 11:49 | Discharge Summary ---
PRIMARY CARE DOCTOR: Dr. Coleen Bertrand. FINAL DIAGNOSIS: Acute systolic congestive heart failure with ejection fraction of less than 20%. SECONDARY DIAGNOSES 1. Chronic respiratory failure, home oxygen arranged. 2. Likely chronic obstructive pulmonary disease. 3. Atrial fibrillation, on Eliquis. 4. Iron deficiency anemia, status post intravenous iron. 5. Influenza, status post Tamiflu x5 days. CONSULTANTS: None. PROCEDURES/STUDIES PERFORMED: Echocardiogram. HISTORY: Per H&P. HOSPITAL COURSE: Patient was diuresed with IV Lasix. He already has an AICD. Patient will continue Coreg and Aldactone for his CHF. Home oxygen has been arranged for his chronic respiratory failure. I have notified his primary care doctor about this, and patient will follow up with him in 1 week. Patient was continued on his Eliquis for his atrial fibrillation. Patient will also need colon cancer screening for iron deficiency anemia if not done already. Again this was related to his primary care doctor. Patient was seen and examined today. It took 32 minutes total to discharge this patient. CONDITION ON DISCHARGE: Improved. DISCHARGE MEDICATIONS: Please see medication reconciliation form. RENE TOM M.D. Job#: [id number] EV cc:COLEEN BERTRAND M.D.
[2018-03-09 12:57] VITALS: BP 113/58
== END 2018-03-09 13:48 | disposition home health service (06) | DRG 292 ==
LOC: FSED 14:14 → ERHOLD 15:02 → MED/SURG2 16:48
PROVIDERS: ADMIT Internal Medicine; ATTEND Internal Medicine
DX: I11.0 Hypertensive heart disease with heart failure (principal); J96.11 Chronic respiratory failure with hypoxia; J44.1 Chronic obstructive pulmonary disease with (acute) exacerbation; I50.23 Acute on chronic systolic (congestive) heart failure; D50.9 Iron deficiency anemia, unspecified; J11.1 Influenza due to unidentified influenza virus with other respiratory manifestations; I48.2 Chronic atrial fibrillation; Z79.01 Long term (current) use of anticoagulants; E87.6 Hypokalemia; Z87.891 Personal history of nicotine dependence; E11.9 Type 2 diabetes mellitus without complications; N40.0 Benign prostatic hyperplasia without lower urinary tract symptoms; I48.91 Unspecified atrial fibrillation; Z91.14 Patient's other noncompliance with medication regimen; F10.21 Alcohol dependence, in remission; K59.00 Constipation, unspecified; Z95.810 Presence of automatic (implantable) cardiac defibrillator
CPT/HCPCS: 36415; 71045; 71046; 80048; 80053; 80061; 80076; 82550; 82553; 82948; 83036; 83540; 83735; 83880; 84466; 84484; 85025; 85379; 87400; 90732; 93005; 93306; 94760; 99284; G0009; J1644; J1756; J1940; J7050

== ENCOUNTER 2018-04-01 15:28 | Emergency (ER) | payer MEDICARE ==
[~2018-04-01] VITALS: Ht 304.8 cm; Wt 78.5 kg
[~2018-04-01 15:28] MED LIST: COREG12.5 MG PO; ELIQUIS PO; FLOMAX0.4 MG PO; LASIX40 MG PO; LOSARTAN POTASS25 MG PO; METFORMIN HCL500 MG PO; PRAVASTATIN SOD10 MG PO
--- OUTSIDE RECORDS SUMMARY | 2018-04-01 15:31 | XMS REPORT | Clinical Summary ---
Author Author KYLEIGH [facility] Address Unknown Phone Unavailable Care Team Providers Care Fish Farm Manager Name Role Phone PCP Unavailable Allergies No [...] Encounters Care Team Description Date Type Specialty Thong Collins MD 03/31/2018 Outside Orders Cardiology Sami Gill MD L CATH & CORONARY ANGIOS 09/05/2017 Surgery Sami Gill MD Claudication (HCC) (Primary Dx); Abnormal stress test; Coronary artery disease due to lipid rich plaque 09/05/2017 Hospital Cardiology - Encounter 09/06/2017 after 03/31/2017 Social History Date Tobacco Use Types Packs/Day [...] Body Mass Index 26 Plan of Treatment Care Team Description Date Type Specialty Thong Collins MD [address] [facility] [id number] [place] [address] [phone] 04/02/2018 Office Visit Cardiology Implants Device Identifier Shelf Expiration Date Model / Serial / Lot Implanted Type Area Manufactur er [id number] 05/19/2018 [id number] / / [id number] Synergy Stents-Cor N/A: Coronary [place] Implanted: Qty: 1 on 09/05/2017 by Sami Patel MD [id number] 04/28/2018 [id number] / / [id number] Promus Premier Stents-Cor N/A: Coronary [place] Implanted: [...] 1:22 PM CDT disease (HCC) CAD in elem artery Case Notes 4CASE POP6 Left heart cath possiblelo wer extremity angio with possible ppi L CATH & CORONARY ANGIOS 09/05/2017 Peripheral vascular 1:22 PM CDT disease (HCC) CAD in elem artery Case Notes 4CASE POP6 Left heart cath possiblelo wer extremity angio with possible ppi POCT-GLUCOSE METER Routine 09/05/2017 8:18 AM CDT after 03/31/2017 Results * VASCULAR DIAGRAM -SCAN (12/09/2017 12:00 [...] WBC 16.8 (H) 3.5 - 10.5 K/L [facility] RBC 3.92 (L) 4.63 - 6.08 M/L [facility] Hemoglobin 12.4 (L) 13.7 - 17.5 GM/DL [facility] Hematocrit 37.7 (L) 40.1 - 51.0 % [facility] MCV 96.2 (H) 79.0 - 92.2 fL [facility] MCH 31.6 25.7 - 32.2 pg [facility] MCHC 32.9 32.3 - 36.5 GM/DL [facility] RDW 14.6 (H) 11.6 - 14.4 % [facility] Platelets 281 150 - 450 K/CU MM [facility] MPV 11.2 9.4 - 12.4 fL [facility] nRBC 0 0 - 0 /100 WBC [facility] Specimen Blood Performing Organization Address City/State/Zipcode Phone Number [facility] [address] [place] [address] MEDICAL CENTER * Basic metabolic panel (09/06/2017 3:10 AM CDT) Sodium 139 136 - 145 meq/L [facility] Potassium 4.5 3.5 - 5.1 meq/L [facility] Chloride 108 (H) 98 - 107 meq/L [facility] CO2 19 (L) 22 - 29 meq/L [facility] BUN 23 (H) 7 - 21 mg/dL [facility] Creatinine 1.10 0.57 - 1.25 mg/dL [facility] Glucose 176 (H) 70 - 105 mg/dL [facility] Calcium 9.0 8.4 - 10.2 mg/dL [facility] EGFR 65Comment: ESTIMATED GFR IS mL/min/1.[address] [facility] NOT ACCURATE CREATININE [facility] CLEARANCE IN PREDICTING GLOMERULAR FILTRATION RATE. ESTIMATED GFR IS NOT APPLICABLE FOR DIALYSIS PATIENTS. Specimen Blood Performing Organization Address City/[facility] Phone Number [address] * POC ACTIVATED CLOTTING TIME (09/05/2017 5:46 PM CDT) Only the most recent of 4 results within the time period is included. Activated Clotting Time 164Comment: TESTED AT [facility] sec [address] Specimen Blood Performing Organization Address City/State/[facility] Phone Number [id number] [place] [address] [phone] [address] * POC-Glucose meter (09/05/2017 8:18 AM CDT) POC-Glucose Meter 118 (H)Comment: TESTED AT 70 - 110 mg/dL [address] [id number] Specimen Blood Performing Organization Address City/[facility]/Zipcode Phone Number [address] after 03/31/2017 Insurance Payer Benefit Subscriber ID Type Phone Address Plan / Group [facility] xxxxxxxxxxx [place]ICARE [place] [address] [place] [address] (Home) [place] [address] Advance Directives For more information, please contact: [facility] [address] [place] [address] Date Inactivated Comments Code Status Date Activated 09/06/2017 12:37 PM Full Code 09/05/2017 7:55 AM This code status was determined by: Patient 10/05/2012 4:53 PM All possible means of support, including: cardiac massage, mechanical ventilation, and defibrillation will be used to support life. Code ONE 10/03/2012 1:11 AM
[2018-04-01 16:41] LABS: BASOPHILS # (AUTO) 0.1 (0.0-0.1); EOSINOPHILS # (AUTO) 0.2 (0.0-0.4); EOSINOPHILS % 2.3 % (0.0-6.0); HEMATOCRIT 29.1 % (38.2-49.6); HEMOGLOBIN 8.5 g/dL (14.0-18.0); LYMPHOCYTES # (AUTO) 1.4 (1.0-3.2); LYMPHOCYTES % 15.2 % (18.0-39.1); MEAN CORPUSCULAR HEMOGLOBIN 22.3 pg (28-32); MEAN CORPUSCULAR HGB CONC 29.2 g/dL (31-35); MEAN CORPUSCULAR VOLUME 76.4 fL (81-99); MONOCYTES # (AUTO) 1.1 (0.2-0.8); MONOCYTES % 11.6 % (4.4-11.3); NEUTROPHILS # (AUTO) 6.3 (2.1-6.9); NEUTROPHILS % 69.5 % (38.7-80.0); PLATELET COUNT 320 x10e3/uL (140-360); RED BLOOD COUNT 3.81 x10e6/uL (4.3-5.7); RED CELL DISTRIBUTION WIDTH 20.8 % (11.7-14.4)
[2018-04-01 16:49] LABS: INR 1.08
--- NOTE | 2018-04-01 16:50 | NUR ---
PT STATES HE WAS SENT TO ED FOR FOLLOW UP ON RESULTS OF PRIOR EXAMS REVEALING "CLOT IN RIGHT LEG". NO ACUTE DISTRESS NOTED AT THIS TIME, PT DENIES CHEST PAIN OR ANY DISCOMFORT AT THIS TIME. ALSO STATES HE HAS AN APPOINTMENT TOMORROW AT [facility] TO "DILATE THE VEIN WITH THE CLOT". EDEMA IS NOTED TO THE RLE. PT MADE AWARE OF ORDERS AND PENDING EXAMS, VERBALIZED UNDERSTANDING.
--- NOTE | 2018-04-01 16:53 | NUR ---
ROXANE FROM LAB CALLED TO REPORT ELEVATED LACTIC ACID 33.3. INFORMED DR. RAJAN AND PRIMARY NURSE LEONCIO BECK OF THIS.
[2018-04-01 16:56] LABS: ALBUMIN 3.4 g/dL (3.5-5.0); ALBUMIN/GLOBULIN RATIO 1.1 (0.8-2.0); ANION GAP 15.6 mmol/L (8-16); CREATININE, SERUM 1.52 mg/dL (0.72-1.25); POTASSIUM 4.6 mmol/L (3.5-5.1)
[2018-04-01 17:03] LABS: CREATINE KINASE MB 3.7 ng/mL (0-5.0)
--- NOTE | 2018-04-01 17:20 | NUR ---
DR. RAJAN MADE AWARE OF ABNORMAL LABS, NO NEW ORDERS RECEIVED AT THIS TIME.
--- NOTE | 2018-04-01 17:38 | NUR ---
X-RAY AT BEDSIDE FOR CXR AT THIS TIME.
--- NOTE | 2018-04-01 17:45 | NUR ---
VASCULAR ULTRASOUND AT [facility] AT THIS TIME.
--- NOTE | 2018-04-01 18:10 | NUR ---
PT UPDATED ON PLAN OF CARE, AND PLAN TO TRANSFER TO [facility] FOR CONTINUITY OF CARE.
--- NOTE | 2018-04-01 18:10 | Diagnostic Imaging Report ---
EXAMINATION: CHEST SINGLE (PORTABLE) INDICATION: SOB COMPARISON: 03/07/2018 FINDINGS: AP view TUBES and LINES: Left chest wall ICD. LUNGS: Bilateral central pulmonary venous congestion. PLEURA: Small left pleural effusion. No pneumothorax. HEART AND MEDIASTINUM: Stable moderate enlargement of the cardiac silhouette. Aortic calcifications. BONES AND SOFT TISSUES: No acute osseous lesion. Median sternotomy wires. Soft tissues are unremarkable. UPPER ABDOMEN: No free air under the diaphragm. IMPRESSION: Decompensated CHF; central pulmonary venous congestion. Signed by: Dr. Juventino Jimenez M.D. on 04/01/2018 6:07 PM
--- NOTE | 2018-04-01 18:35 | NUR ---
PENDING APPROVAL FOR TRANSFER AT THIS TIME AND PT MADE AWARE OF THIS, VERBALIZED UNDERSTANDING.
[2018-04-01] MEDS ORDERED: FUROSEMIDE INJ 10 MG/ML 4 ML VIAL IV ONE (18:45)
--- NOTE | 2018-04-01 19:10 | NUR ---
WALKING ROUNDS AND BEDSIDE REPORT COMPLETED WITH SARIKA MAHER RN GENERAL MACHINE OPERATOR NURSE.
--- NOTE | 2018-04-01 21:51 | NUR ---
REPORT CALLED TO TAQUERIA FANG AT [facility]
== END 2018-04-01 23:20 | disposition other institution (70) ==
LOC: ER 15:28
DX: R06.09 Other forms of dyspnea (principal); I50.9 Heart failure, unspecified; I10 Essential (primary) hypertension; E11.9 Type 2 diabetes mellitus without complications; Z87.891 Personal history of nicotine dependence
CPT/HCPCS: 36415; 71045; 80053; 82550; 82553; 83605; 83880; 84484; 85025; 85610; 87040; 93926; 93971; 99284; J1940